=== PATIENT | male | born 1940 | race Asian ===

== ENCOUNTER → 2016-07-08 | Outpatient (CLI) | payer OTHER ==
[~2016-07-08] MED LIST: ALBU8.5H IH; CARV25TA32 PO; FLUT1DIS3 IH; FURO20 PO; INSLAN SQ; MULT1CAP32 PO; PIOG45TA PO; ROSU20 PO; SITA50 PO; TAMS0.4C32 PO; WARF3TAB6 PO; [UNRECOGNIZED DRUG - CODE] PO
== END | disposition home or self-care (01) ==
LOC: RADPV 08:36
PROVIDERS: ATTEND Internal Medicine Cardiovascular Disease
DX: I50.9 Heart failure, unspecified (principal); I35.1 Nonrheumatic aortic (valve) insufficiency; I70.8 Atherosclerosis of other arteries; I34.0 Nonrheumatic mitral (valve) insufficiency; I07.1 Rheumatic tricuspid insufficiency; I37.1 Nonrheumatic pulmonary valve insufficiency
CPT/HCPCS: 93306

== ENCOUNTER 2016-12-12 17:17 | Emergency (ER) | payer OTHER ==
[~2016-12-12] VITALS: Ht 160 cm; Wt 77.0 kg
[2016-12-12 17:48] LABS: GLUCOSE,POINT OF CARE 79 MG/DL (70-110)
[2016-12-12] MEDS ORDERED: DIGO125T PO (17:59)
[2016-12-12] MEDS ORDERED: FENO160 PO (17:59)
[2016-12-12] MEDS ORDERED: ACAR50TA11 PO (17:59)
[2016-12-12] MEDS ORDERED: VITAD1000 PO (17:59)
[2016-12-12] MEDS ORDERED: OMEG100019 PO (17:59)
[2016-12-12] MEDS ORDERED: BACTDSB PO (17:59)
[2016-12-12] MEDS ORDERED: LOSA50TA37 PO (17:59)
[2016-12-12] MEDS ORDERED: ATOR20TA86 PO (17:59)
[2016-12-12] MEDS ORDERED: APIX2.5T PO (17:59)
[2016-12-12 19:15] LABS: BASOPHILS % (AUTO) 0.2 % (0.0-2.0); EOSINOPHILS % (AUTO) 0.9 % (1.0-6.0); HEMATOCRIT 42.9 % (41-53); HEMOGLOBIN 14.1 g/dL (13.5-17.5); LYMPHOCYTES # (AUTO) 1.2 K/uL (1.0-4.8); LYMPHOCYTES % (AUTO) 10.4 % (22.0-44.0); MEAN CORPUSCULAR HEMOGLOBIN 28.8 pg (26.0-34.0); MEAN CORPUSCULAR HGB CONC 32.9 G/dL (31.0-37.0); MEAN CORPUSCULAR VOLUME 88 fL (80-100); MONOCYTES # (AUTO) 1.5 K/uL (0.1-1.0); MONOCYTES % (AUTO) 12.3 % (2.0-9.0); NEUTROPHILS # (AUTO) 9.1 K/uL (1.8-7.7); NEUTROPHILS % (AUTO) 76.2 % (40.0-70.0); PLATELET COUNT (AUTO) 158 K/uL (150-450); RED CELL DISTRIBUTION WIDTH 15.9 % (11.5-14.5); WHITE BLOOD COUNT (AUTO) 11.9 K/uL (4.5-11.0)
[2016-12-12] MEDS ORDERED: IBUPROFEN 600 MG TABLET PO ONE (19:15)
[2016-12-12 19:20] LABS: CALCIUM, TOTAL 8.9 mg/dL (8.8-10.5); CREATININE 2.39 mg/dL (0.60-1.30); POTASSIUM 3.3 mmol/L (3.5-5.1)
[2016-12-12 19:26] LABS: ALBUMIN 3.2 g/dL (3.4-5.0); BILIRUBIN,TOTAL 0.8 mg/dL (0.1-1.0)
[2016-12-12] MEDS ORDERED: LIDOCAINE HCL 5% TRANSDERMAL PATCH TD ONE (19:45)
[2016-12-12 20:06] VITALS: BP 115/70
== END 2016-12-12 20:26 | disposition home or self-care (01) ==
LOC: EMS 17:21
DX: M54.5 Low back pain (principal); R59.0 Localized enlarged lymph nodes; I13.0 Hypertensive heart and chronic kidney disease with heart failure and stage 1 through stage 4 chronic kidney disease, or unspecified chronic kidney disease; I50.9 Heart failure, unspecified; N18.9 Chronic kidney disease, unspecified; E11.22 Type 2 diabetes mellitus with diabetic chronic kidney disease; J44.9 Chronic obstructive pulmonary disease, unspecified; M10.9 Gout, unspecified; Z79.01 Long term (current) use of anticoagulants; Z87.442 Personal history of urinary calculi; Z95.0 Presence of cardiac pacemaker
CPT/HCPCS: 72100; 82962; 99285

== ENCOUNTER 2018-03-17 06:00 | Emergency (ER) | payer OTHER ==
[~2018-03-17] VITALS: Ht 160 cm; Wt 77.3 kg
[~2018-03-17 06:00] MED LIST changes: +ACAR50TA11 PO; -ALBU8.5H IH; +ALBU8.5H8 IH; +APIX2.5T PO; +ATOR20TA86 PO; +BACTDSB PO; +DIGO-44 PO; +FENO160 PO; -INSLAN SQ; +LOSA50TA64 PO; +OMEG-135 PO; -PIOG45TA PO; -ROSU20 PO; +VITAD1000 PO; -WARF3TAB6 PO
[2018-03-17 06:09] LABS: GLUCOSE,POINT OF CARE 78 MG/DL (70-110)
[2018-03-17] MEDS ORDERED: ROFL500T PO (06:13)
[2018-03-17] MEDS ORDERED: ESOM20CA31 PO (06:13)
[2018-03-17] MEDS ORDERED: ROSU20 PO (06:13)
[2018-03-17] MEDS ORDERED: AMLO-511 PO (06:13)
[2018-03-17] MEDS ORDERED: DULA0.75 SQ (06:21)
[2018-03-17] MEDS ORDERED: INSU300I INJ (06:26)
[2018-03-17] MEDS ORDERED: ACLI400A2 IH (06:27)
[2018-03-17] MEDS ORDERED: LIDOCAINE/PF 1% 2 ML VIAL IM ONE (07:00)
[2018-03-17] MEDS ORDERED: CefTRIAXone SODIUM 1 GM/VIAL IM ONE (07:00)
[2018-03-17] MEDS ORDERED: ACETAMINOPHEN 500 MG TABLET PO ONE (07:00)
[2018-03-17 08:08] VITALS: BP 122/64
== END 2018-03-17 08:24 | disposition home or self-care (01) ==
LOC: EMS 06:00
DX: H70.92 Unspecified mastoiditis, left ear (principal); I11.0 Hypertensive heart disease with heart failure; I50.9 Heart failure, unspecified; J44.9 Chronic obstructive pulmonary disease, unspecified; E78.00 Pure hypercholesterolemia, unspecified; Z95.0 Presence of cardiac pacemaker; Z90.5 Acquired absence of kidney; Z95.1 Presence of aortocoronary bypass graft; Z79.899 Other long term (current) drug therapy; Z79.4 Long term (current) use of insulin
CPT/HCPCS: 82962; 96372; 99283; J0696; J3490

== ENCOUNTER 2018-03-23 09:22 | Emergency (ER) | payer OTHER ==
[~2018-03-23] VITALS: Ht 160 cm; Wt 113.6 kg
[~2018-03-23 09:22] MED LIST changes: -ACAR50TA11 PO; +ACLI400A2 IH; +AMLO-511 PO; -ATOR20TA86 PO; -BACTDSB PO; -DIGO-44 PO; +DULA0.75 SQ; +ESOM20CA31 PO; -FENO160 PO; +INSU300I INJ; +ROFL500T PO; +ROSU20 PO
[2018-03-23 09:49] LABS: GLUCOSE,POINT OF CARE 68 MG/DL (70-110)
[2018-03-23] MEDS ORDERED: 0.9% SODIUM CHLORIDE 5 ML NEB SOLUTION NEB ONE (09:56)
[2018-03-23] MEDS ORDERED: ALBUTEROL SULFATE 2.5 MG/0.5 ML NEB SOLUTION NEB ONE (10:00)
[2018-03-23] MEDS ORDERED: IPRATROPIUM BROMIDE 0.5 MG/2.5 ML NEB SOLUTION NEB ONE ×2 (10:00)
[2018-03-23] MEDS ORDERED: ALBUTEROL SULFATE 5 MG/ML 20 ML NEB SOLN [BULK] NEB ONE (10:00)
[2018-03-23 10:41] LABS: BASOPHILS % (AUTO) 0.5 % (0.0-2.0); EOSINOPHILS % (AUTO) 1.8 % (1.0-6.0); HEMATOCRIT 34.6 % (41-53); HEMOGLOBIN 11.3 g/dL (13.5-17.5); LYMPHOCYTES # (AUTO) 0.6 K/uL (1.0-4.8); LYMPHOCYTES % (AUTO) 6.7 % (22.0-44.0); MEAN CORPUSCULAR HEMOGLOBIN 28.1 pg (26.0-34.0); MEAN CORPUSCULAR HGB CONC 32.8 G/dL (31.0-37.0); MEAN CORPUSCULAR VOLUME 86 fL (80-100); MONOCYTES # (AUTO) 0.9 K/uL (0.1-1.0); MONOCYTES % (AUTO) 10.8 % (2.0-9.0); NEUTROPHILS # (AUTO) 6.7 K/uL (1.8-7.7); NEUTROPHILS % (AUTO) 80.2 % (40.0-70.0); PLATELET COUNT (AUTO) 118 K/uL (150-450); RED BLOOD CELL COUNT(AUTO) 4.03 MIL/uL (4.50-5.90); RED CELL DISTRIBUTION WIDTH 19.3 % (11.5-14.5)
[2018-03-23 11:11] LABS: CALCIUM, TOTAL 10.1 mg/dL (8.8-10.5); CREATININE 2.4 mg/dL (0.60-1.30); POTASSIUM 4.2 mmol/L (3.5-5.1)
[2018-03-23 11:17] LABS: ALBUMIN 2.5 g/dL (3.4-5.0); BILIRUBIN,TOTAL 0.7 mg/dL (0.1-1.0); TOTAL PROTEIN, SERUM 8.9 g/dL (6.4-8.2)
[2018-03-23] MEDS ORDERED: FUROSEMIDE 40 MG/4 ML VIAL IVP ONE (12:00)
[2018-03-23] MEDS ORDERED: MethylPREDNISolone SOD SUCC 125 MG/2 ML VIAL IVP ONE (12:45)
[2018-03-23 16:04] VITALS: BP 128/67
== END 2018-03-23 16:47 | disposition home or self-care (01) ==
LOC: EMS 09:22
DX: J45.909 Unspecified asthma, uncomplicated (principal); I13.0 Hypertensive heart and chronic kidney disease with heart failure and stage 1 through stage 4 chronic kidney disease, or unspecified chronic kidney disease; E11.22 Type 2 diabetes mellitus with diabetic chronic kidney disease; N18.9 Chronic kidney disease, unspecified; I50.9 Heart failure, unspecified; R59.9 Enlarged lymph nodes, unspecified; D49.89 Neoplasm of unspecified behavior of other specified sites; E78.00 Pure hypercholesterolemia, unspecified; Z79.899 Other long term (current) drug therapy
CPT/HCPCS: 36415; 71045; 74176; 80053; 82962; 83880; 84484; 85025; 93005; 94640; 96374; 96375; 99285; J1940; J2930; 94644